=== PATIENT | male | born 1985 | race Caucasian/White ===

== ENCOUNTER 2022-01-15 16:39 | Emergency (ER) | payer SELFPAY ==
[~2022-01-15] VITALS: Ht 177.8 cm; Wt 74.0 kg
[2022-01-15 16:41] VITALS: BP 137/91
== END 2022-01-15 17:55 | disposition left against medical advice (07) ==
LOC: M ED 16:39
DX: Z53.21 Procedure and treatment not carried out due to patient leaving prior to being seen by health care provider (principal)